=== PATIENT | female | born 1980 | race African-American/Black ===

== ENCOUNTER 2016-05-12 10:45 | Emergency (ER) | payer OTHER ==
[2016-05-12] MEDS ORDERED: TAMIFLU75 M1 PO ×2 (12:13→12:31)
[2016-05-12] MEDS ORDERED: IBUPROFEN800 M1 PO ×2 (12:13→12:31)
--- NOTE | 2016-05-12 12:13 | ED INFLUENZA/URI COMPLAINT ---
History of Present Illness General Chief Complaint: General Adult Stated Complaint: BODY ACHES, QUIROGA Source: patient Exam Limitations: no limitations Vital Signs & Intake/Output Vital Signs & Intake/Output Vital Signs Date Time Temp Pulse Resp B/P Pulse O2 O2 Flow FiO2 Ox Delivery Rate 05/12 1215 99.5 05/12 1214 99.5 95 18 115/56 98 Room Air 05/12 1139 99.5 05/12 1052 99.5 120 20 127/77 98 Room Air Allergies Coded Allergies: NO KNOWN ALLERGIES (11/19/10) Triage Note: PT TO ED C/O HEADACHE, BODY ACHES, CHILLS SINCE YESTERDAY. UNSURE IF FEVERS AT HOME. HAS BEEN TAKING DAYQUIL WITH SOME RELIEF. Triage Nurses Notes Reviewed? yes Onset: Abrupt Duration: day(s): (2), constant, continues in ED Timing: recent history Severity: moderate, severe No Modifying Factors: none : No Patient currently breastfeeds: No HPI: 35-year-old female comes into emergency room with complaints of severe body aches headache chills. Symptoms are going on for the past couple days. Denies any other symptoms such as runny nose cough mucus production vomiting. Patient reports that everyone in her house is sick. Her daughter has been sick with similar symptoms for the past week and is here in the emergency room with them. (DEONTE HENDERSON) Reconcile Medications Ibuprofen 800 MG TABLET 1 TAB PO TID FEVER Ibuprofen 800 MG TABLET 1 TAB PO TID fever Oseltamivir Phosphate (Tamiflu) 75 MG CAPSULE 1 CAP PO BID FLU Oseltamivir Phosphate (Tamiflu) 75 MG CAPSULE 1 CAP PO BID flu (BEHZAD VALENTIN MD) Past History Travel History Traveled to [place] past 21 day No Medical History Any Pertinent Medical History? 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 No (DEONTE HENDERSON) Review of Systems Review of Systems Constitutional: Reports: see HPI. EENTM: Reports: no symptoms. Respiratory: Reports: no symptoms. Cardiovascular: Reports: no symptoms. GI: Reports: no symptoms. Genitourinary: Reports: no symptoms. Musculoskeletal: Reports: see HPI. Skin: Reports: no symptoms. Neurological/Psychological: Reports: no symptoms. Hematologic/Endocrine: Reports: no symptoms. Immunologic/Allergic: Reports: no symptoms. All Other Systems: Reviewed and Negative (DEONTE HENDERSON) Physical Exam Physical Exam General Appearance: well developed/nourished, no apparent distress, alert, awake Head: atraumatic, normal appearance Eyes: Bilateral: normal appearance. Ears, Nose, Throat: normal ENT inspection, moist mucous membrane Neck: normal inspection Respiratory: normal breath sounds, no respiratory distress Cardiovascular: regular rate/rhythm Back: normal inspection Extremities: normal inspection Neurologic/Psych: awake, alert, oriented x 3, normal gait, normal mood/affect Skin: intact, normal color Core Measures Severe Sepsis Present: No Septic Shock Present: No (DEONTE HENDERSON) Progress Differential Diagnosis: influenza, meningitis, neutropenia, otitis, pneumonia, pharyngitis, sinusitis Plan of Care: Orders Procedure Date/time Status VIRAL CULTURE 05/12 1140 Active RAPID VIRAL INFLUENZA A 05/12 1127 Complete Laboratory Tests 05/12/16 1140: Virus Culture Pending Initial ED EKG: none Comments: 05/12/2016 12:19:39 PM Patient does not appear to be in any type of distress upon discharge. Clinically looks well. Nontoxic-appearing. (DEONTE HENDERSON) Departure Departure Disposition: HOME OR SELF CARE Condition: Stable Clinical Impression Primary Impression: Influenza A Referrals: PATIENT HAS NO PRIMARY CARE DR (PCP/Family) Additional Instructions: Take Tamiflu and Motrin as prescribed. Rest. Drink plenty of fluids. Isolation precautions at home. Return if any other concerns worsening symptoms. Departure Forms: Customer Survey General Discharge Information (DEONTE HENDERSON) Departure Prescriptions: Current Visit Scripts Ibuprofen 1 TAB PO TID #30 TAB Oseltamivir Phosphate (Tamiflu) 1 CAP PO BID #10 CAP Oseltamivir Phosphate (Tamiflu) 1 CAP PO BID #10 CAP Ibuprofen 1 TAB PO TID #30 TAB PA/MACHINES TECHNICIAN Co-Sign Statement Statement: ED Attending supervision documentation- [] I saw and evaluated the patient. I have also reviewed all the pertinent lab results and diagnostic results. I agree with the findings and the plan of care as documented in the PA's/MACHINES TECHNICIAN's documentation. x I have reviewed the ED Record and agree with the PA's/MACHINES TECHNICIAN's documentation. [] Additions or exceptions (if any) to the PAs/MACHINES TECHNICIAN's note and plan are summarized below: [] (BARBIE BARBOZA,BEHZAD)
[2016-05-12 12:14] VITALS: BP 115/56
== END 2016-05-12 12:26 ==
LOC: ERH 10:45
DX: J09.X2 Influenza due to identified novel influenza A virus with other respiratory manifestations (principal); Z72.0 Tobacco use
CPT/HCPCS: 87804; 87804-59

== ENCOUNTER 2016-11-06 22:12 | Emergency (ER) | payer OTHER ==
[~2016-11-06 22:12] MED LIST: IBUPROFEN800 M1 PO; TAMIFLU75 M1 PO
[2016-11-06 22:52] VITALS: BP 110/75
--- NOTE | 2016-11-06 23:27 | RADIOLOGY REPORT ---
EXAMINATION: XR FOOT, LEFT CLINICAL INFORMATION: Laceration. Concern for foreign body. COMPARISON: None TECHNIQUE: 2 views of the left foot. FINDINGS: No radiopaque foreign body. No air in the soft tissue. Bone and joints are normal. IMPRESSION: Normal left foot. No radiopaque foreign body.
--- NOTE | 2016-11-07 00:20 | ED ANKLE/FOOT INJURY COMPLAINT ---
History of Present Illness General Chief Complaint: Foot or Ankle Injury Stated Complaint: LEFT FOOT PUNCTURE ?GLASS Source: patient, old records Exam Limitations: no limitations Vital Signs & Intake/Output Vital Signs & Intake/Output Vital Signs Date Time Temp Pulse Resp B/P B/P Pulse O2 O2 Flow FiO2 Mean Ox Delivery Rate 11/06 2252 97.6 72 20 110/75 Allergies Coded Allergies: NO KNOWN ALLERGIES (11/19/10) Reconcile Medications No Known Home Medications Triage Note: PER PT DROPPED A CUP ON L FOOT, GOT A CUT ? GLASS IN THERE 1/4 INCH LAC TO OUTER ASPECT L FOOT PER PT NO CHANCE OF PREG Triage Nurses Notes Reviewed? yes Occurred: just prior to arrival Duration: hour(s): Timing: single episode today Severity: moderate Pain/Injury Location: Left: Foot. Method of Injury: laceration No Modifying Factors: none : No Patient currently breastfeeds: No HPI: 36yo female presents to emergency department complaining of laceration to left foot. Patient states that prior to arrival she dropped a glass cup which shattered on her left foot. She is concerned that there are glass fragments in her wound. SHe is unsure of her last tetanus shot. She is able to ambulate without difficulty. She denies numbness, tingling, fall. (IRA PEGUERO PA-C) Past History Travel History Traveled to [place] past 21 day No Medical History Any Pertinent Medical History? 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 No (IRA PEGUERO PA-C) Review of Systems Review of Systems Constitutional: Reports: no symptoms. EENTM: Reports: no symptoms. Respiratory: Reports: no symptoms. Cardiovascular: Reports: no symptoms. GI: Reports: no symptoms. Genitourinary: Reports: no symptoms. Musculoskeletal: Reports: no symptoms. Skin: Reports: see HPI. Neurological/Psychological: Reports: no symptoms. Hematologic/Endocrine: Reports: no symptoms. Immunologic/Allergic: Reports: no symptoms. All Other Systems: Reviewed and Negative (IRA PEGUERO PA-C) Physical Exam Physical Exam Leg/Knee/Thigh Left: SEE BELOW Comments: Well-developed well-nourished person in no acute distress HEENT: HEAD is atraumatic. Neck: Supple, normal range of motion Back: Full range of motion Respiratory: No respiratory distress. Patient speaking in full complete sentences. Extremity: No edema, full range of motion of extremities, normal and equal pulses bilaterally, 5 out of 5 strength noted to bilateral upper and lower extremities, 2cm linear laceration to lateral anterior left foot Neuro: Alert oriented x3, motor sensory normal, There were no obvious focal neurologic abnormalities. Skin: 2cm linear laceration to lateral anterior left foot Psych: Mood and affect is normal, memory and judgment is normal. (SUDHIR OAKLEY,IRA RAMIREZ) Progress Differential Diagnosis: cellulitis, fracture, dislocation, sprain, contusion, laceration Plan of Care: X-ray shows no foreign body. No foreign body palpated on exam. Wound was explored using Paz clamps however no foreign body detected. Dr. Franco present to examine wound without detection of foreign body. Wound was closed with 2 sutures, patient tolerated procedure well. Patient was educated on signs and symptoms of infection. Patient was informed that there is a possibility of foreign body still persistent and wound. Patient's tetanus status was updated today. Patient will return here or to her primary care doctor in 7-10 days for suture removal. She will return sooner with signs of infection or worsening symptoms. The patient is in agreement with the plan of care. She is able to ambulate leaving the emergency department. Diagnostic Imaging: Viewed by Me: Radiology Read. Discussed w/RAD: Radiology Read. Radiology Impression: PATIENT: BLAKE CHIU PRESENT AGE: 36 PATIENT ACCOUNT NO: [id number] : 79 LOCATION: [facility] ORDERING PHYSICIAN: VIJAY FELDER DO (TBS) SERVICE DATE: 11/06/16 EXAM TYPE: RAD - XRY-FOOT TWO VIEWS, LEFT EXAMINATION: XR FOOT, LEFT CLINICAL INFORMATION: Laceration. Concern for foreign body. COMPARISON: None TECHNIQUE: 2 views of the left foot. FINDINGS: No radiopaque foreign body. No air in the soft tissue. Bone and joints are normal. IMPRESSION: Normal left foot. No radiopaque foreign body. DICTATED BY: ALEKSEY ALLEN MD DATE/TIME DICTATED:11/06/162321 DEBRANDER :TRISTEN DATE/TIME TRANSCRIBED:11/06/162321 CONFIDENTIAL, DO NOT COPY WITHOUT APPROPRIATE AUTHORIZATION. <Electronically signed in Other Vendor System> SIGNED BY: ALEKSEY ALLEN MD 11/06/162326 (IRA PEGUERO PA-C) Departure Departure Disposition: HOME OR SELF CARE Condition: Stable Clinical Impression Primary Impression: Laceration Referrals: PATIENT HAS NO PRIMARY CARE DR (PCP/Family) Additional Instructions: Apply bacitracin and bandaid over wound for next two days. Leave wound open to the air when relaxing and sleeping, cover with band-aid when active. Apply ice tonight if sore. Monitor for signs of infection including redness, swelling, increasing pain, cloudy drainage. Return here or to your primary care doctor in 7-10 days for suture removal. Return sooner if you have any concerns. Please note that there might be incidental findings in your evaluation that are unrelated to the current emergency department visit. Please notify your primary care doctor about this emergency department visit in order to obtain and review all of the testing performed so that these incidental findings can be monitored as needed. If you had an x-ray performed, please understand that some fractures may not be seen on the initial set of x-rays. If your symptoms persist you might need a repeat set of x-rays to check for such a fracture. If you had a laceration evaluated, please understand that foreign bodies such as glass or wood may not be visible to the naked eye or on plain x-rays. If the wound becomes red, swollen, increasingly more painful or if there is any drainage from the wound, please have it reevaluated by a physician for the possibility of a retained foreign body. If you're unable to follow up as outlined in the discharge instructions please return to the emergency department. Thank you for choosing the [facility] Emergency Department for your care. It was a pleasure to serve you today. Departure Forms: Customer Survey General Discharge Information Prescriptions: Current Visit Scripts No Known Home Medications (IRA PEGUERO PA-C) PA/LEASE ADMINISTRATOR Co-Sign Statement Statement: ED Attending supervision documentation- [x] I saw and evaluated the patient. I have also reviewed all the pertinent lab results and diagnostic results. I agree with the findings and the plan of care as documented in the PA's/LEASE ADMINISTRATOR's documentation. [] I have reviewed the ED Record and agree with the PA's/LEASE ADMINISTRATOR's documentation. [] Additions or exceptions (if any) to the PAs/LEASE ADMINISTRATOR's note and plan are summarized below: [] (EMILIA BARBOZA,LISA Chavez) Procedures Laceration/Wound Repair Laceration/Wound Repair: Wound Location: left anterior foot Wound's Depth, Shape: linear, superficial Wound Length (cm): 2 Wound Explored: no foreign body removed, irrigated extensively Irrigated w/ Saline (ccs): 400 Betadine Prep? Yes Anesthesia: 1% lidocaine Volume Anesthetic (ccs): 4 Wound Repaired With: sutures Suture Size/Type: 4:0 Number of Sutures: 2 Layer Closure? No Date of Last Tetanus: 11/07/16 Tetanus Status: up to date Progress: Patient tolerated procedure well. (SUDHIR OAKLEY,IRA RAMIREZ)
== END 2016-11-07 01:04 ==
LOC: ERH 22:12
DX: S91.312A Laceration without foreign body, left foot, initial encounter (principal); W25.XXXA Contact with sharp glass, initial encounter; Y93.89 Activity, other specified; Y92.9 Unspecified place or not applicable
CPT/HCPCS: 73620-LT; 90471; 90714